=== PATIENT | male | born 1970 | race African-American/Black ===

== ENCOUNTER 2024-03-08 13:10 | Emergency (ER) | payer SELFPAY ==
[2024-03-08 13:16] VITALS: BP 136/85; PULSE 66; RESP 16; TEMP 98.8; BMI 22.2
[2024-03-08] MEDS ORDERED: IBUPROFEN 600 MG TABLET (FP) PO ONE (13:32)
[2024-03-08] MEDS: IBUPROFEN 600 MG TABLET (FP) PO ONE (13:34)
[2024-03-08] MEDS ORDERED: DIPHTH,PERTUSS(ACELL),TET 0.5 ML DISP.SYRIN IM ONE (15:01)
[2024-03-08] MEDS ORDERED: IBUPROFEN 400 MG TABLET (FP) PO ONE (15:01)
== END 2024-03-08 14:04 | disposition home or self-care (01) ==
LOC: JERFT 13:10
DX: M79.641 Pain in right hand (principal); G89.29 Other chronic pain
CPT/HCPCS: 99283-25